=== PATIENT | male | born 1975 | race Caucasian/White ===

== ENCOUNTER 2021-05-16 11:15 | Inpatient (IN) ==
[2021-05-16] MEDS ORDERED: ALBUTEROL HFA 8 GM INHALER INH ONE (12:36)
[2021-05-16] MEDS ORDERED: dexAMETHasone**PF** 10 MG/ML VIAL PO ONE (12:36)
[2021-05-16] MEDS ORDERED: ACETAMINOPHEN 500 MG TAB PO STA (12:36)
[2021-05-16] MEDS ORDERED: dexAMETHasone**PF** 10 MG/ML VIAL IV ONE (12:41)
--- NOTE | 2021-05-16 12:46 | Emergency Department Note ---
Impression & Plan Hypoxia, SOB (shortness of breath), Pneumonia, Failure of outpatient treatment, COVID-19 ED Provider Note NAME: ZAFAR GEORGES AGE: 45 SEX: M : 1975 ARRIVES VIA: Ambulance INFORMANT: [Patient] ED PROVIDER(S): [Dominguez Gill MD] CHIEF COMPLAINT: Short of breath HISTORY OF PRESENT ILLNESS: The patient is a 45-year-old male who presents to the ED with dyspnea. The pa hima states he has COVID-19 and has had symptoms for about 10 days. He is not vaccinated against COVID-19. Patient was here 2 days ago and then again yesterday. He is now on O2 at home. He does have Covid pneumonia by chest film. He is not using an inhaler, he is not currently on any steroids. The patient presents today because he felt more short of breath. His oxygen level had been at 2 L, the EMS crew increased it to 3 and now he feels better. The patient is coughing less but is still feeling short of breath especially with exertion. He still has some low-grade fevers at times. He has lost his taste and smell. He is not vomiting although, he does have some loose, brown stool at times. REVIEW OF SYSTEMS: See HPI for pertinent positives and negatives. A total of ten systems were reviewed and were otherwise negative. PMHx/PSHx: See Below SOCIAL HISTORY: See Below. PHYSICAL EXAM: GENERAL: Patient is in no acute distress. HEENT: No acute trauma, normocephalic atraumatic, mucous membranes moist, no nasal congestion, no scleral icterus. NECK: No stridor, no adenopathy, no meningismus, trachea is midline. LUNGS: Crackles at both lung bases, no wheezing, no obvious respiratory distress, there is an increased respiratory rate. Dry cough noted. HEART: Mildly tachycardic, regular rhythm, no murmurs. ABDOMEN: Soft, nontender, bowel sounds positive, no hernias, no peritonitis. EXTREMITIES: No cyanosis or edema, full range of motion of all the joints without pain or difficulty, no signs for acute trauma. NEUROLOGIC: Oriented x 3, no acute motor or sensory deficits, no focal weakness. SKIN: No rash, no jaundice, no diaphoresis. DIFFERENTIAL DIAGNOSIS: Reactive airway disease, pneumonia, pneumothorax, COPD, COVID-19, CHF, infection, cardiac ischemia, pulmonary embolism, bronchitis, musculoskeletal, gastrointestinal, as well as other pathologies. EMERGENCY DEPARTMENT COURSE/PROCEDURES: ECG: Indication was shortness of breath. The ECG shows a sinus tachycardia with a rate of 102. There is no ST elevation, no PVCs. The QTc is 445. Continuous Cardiac Monitoring: An order was placed for continuous cardiac monitoring. The monitor shows a rate of 99 with normal sinus rhythm. Critical Care Note: I have personally spent 53 minutes of critical care time in the direct management of this patient. This includes bedside care, interpretation of diagnostic studies, and testing, discussion with consultants, patient, and family members, and other required patient management activities. This 53 minutes is in excess of all separately billable procedures. MEDICAL DECISION MAKING: There is no leukocytosis or concerning anemia. There is a normal platelet count. Potassium is slightly low and sodium slightly low. No kidney failure. ECG showed a sinus tachycardia, no acute ischemia. Cardiac enzyme testing x1 was not consistent with acute cardiac injury. Chest film showed bilateral pulmonary congestion consistent with pneumonia. The film appeared slightly worse than previous films. Chest CT did not show PE, bilateral pulmonary infiltrates were seen. The patient presents with increasing shortness of breath despite home O2. His oxygen requirement has increased from 2 to 3 L. His Covid pneumonia appears worse on imaging. The patient is in need of a hospital stay. He was given oral Tylenol, albuterol via MDI, IV Decadron. He does seem more comfortable. He was maintained on nasal cannula O2. The patient is being hospitalized for his Covid pneumonia and oxygen requirement. I did speak with the patient and case management director. The on-call hospitalist was consulted. 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 Feels Safe at Home: Yes caffeine: Yes (tea) Dental Care, Regularly: No Physical Activity Frequency: Daily Seatbelt Use: always Sunscreen Use: Yes Allergies Allergies Allergy/AdvReac Type Severity Reaction Status Date / Time No Known Allergies Allergy Mild Unverified 05/14/21 15:47 Home Meds Home Medications Medication Instructions Recorded Confirmed acetaminophen 500 mg tablet 500 mg PO QID PRN 09/08/20 05/16/21 (Tylenol Extra Strength) amlodipine 10 mg tablet 10 mg PO QAM tab 09/28/20 05/16/21 Previous Rx's Medication Instructions Recorded hydrochlorothiazide 25 mg tablet 25 mg PO QAM #90 tab 02/25/21 Results & Data (ED) Vital Signs Vital Signs - 24 hr 05/16/21 11:25 05/16/21 12:27 05/16/21 13:20 Temperature 37.7 C H Temperature Source Oral Pulse Rate 103 H 98 H Pulse Rate [Right Finger] 100 H Pulse Rate from SpO2 Sensor 98 H Respiratory Rate 18 26 H Respiratory Depth Normal Blood Pressure 133/86 Blood Pressure [Right Arm] 127/87 Blood Pressure Mean 101 Blood Pressure Mean [Right Arm] 100 Pulse Oximetry 94 97 96 Oxygen Delivery Method Nasal Cannula Nasal Cannula Oxygen Flow Rate 3 3 Sepsis New/Unexplained Change in Mental Status No Sepsis Action Taken by Nursing No Action Required 05/16/21 13:30 05/16/21 14:00 05/16/21 14:30 Temperature Temperature Source Pulse Rate 100 H 103 H 101 H Pulse Rate [Right Finger] Pulse Rate from SpO2 Sensor 99 H 102 H 101 H Respiratory Rate 26 H 30 H 27 H Respiratory Depth Blood Pressure Blood Pressure [Right Arm] Blood Pressure Mean Blood Pressure Mean [Right Arm] Pulse Oximetry 95 95 96 Oxygen Delivery Method Oxygen Flow Rate Sepsis New/Unexplained Change in Mental Status Sepsis Action Taken by Nursing 05/16/21 15:00 05/16/21 15:30 05/16/21 16:00 Temperature Temperature Source Pulse Rate 110 H 105 H Pulse Rate [Right Finger] Pulse Rate from SpO2 Sensor 109 H 102 H 93 H Respiratory Rate 31 H 17 Respiratory Depth Blood Pressure 138/91 Blood Pressure [Right Arm] Blood Pressure Mean 106 Blood Pressure Mean [Right Arm] Pulse Oximetry 93 96 97 Oxygen Delivery Method Oxygen Flow Rate 2 2 Sepsis New/Unexplained Change in Mental Status Sepsis Action Taken by Nursing 05/16/21 16:30 05/16/21 17:00 Temperature Temperature Source Pulse Rate 101 H 97 H Pulse Rate [Right Finger] Pulse Rate from SpO2 Sensor 101 H 96 H Respiratory Rate 27 H 21 Respiratory Depth Blood Pressure Blood Pressure [Right Arm] Blood Pressure Mean Blood Pressure Mean [Right Arm] Pulse Oximetry 96 98 Oxygen Delivery Method Oxygen Flow Rate 3 3 Sepsis New/Unexplained Change in Mental Status Sepsis Action Taken by [facility] Medications Current Medication List: was personally reviewed by me Laboratory Data Attestation: I reviewed the patient's lab results. Result diagrams: 05/16/21 12:55 05/16/21 12:55 Lab Results 05/16/21 05/16/21 Range/Units 12:55 12:55 WBC 5.40 (4.8-10.8) K/uL RBC 4.93 (4.7-6.1) M/uL Hgb 14.7 (14.0-18.0) g/dL Hct 42.5 (42-52) % MCV 86.2 (80-100) fL MCH 29.8 (25-34) pg MCHC 34.6 (32-36) g/dL RDW Std Deviation 41.9 (36.4-46.3) fL RDW Coeff of Dank 13.2 (11.5-14.5) % Plt Count 248 (130-400) K/uL MPV 9.4 (7.4-10.4) fL Sodium 135 L (136-145) mmol/L Potassium 3.4 L (3.5-5.1) mmol/L Chloride 98 (98-107) mmol/L Carbon Dioxide 29 (21-32) mmol/L Anion Gap 8.0 (3-11) BUN 10 D (7-18) mg/dl Creatinine 0.94 (0.6-1.4) mg/dl Est Cr Clr Drug Dosing Not Reportable Est GFR ( Amer) 113.8 ml/min Est GFR (Non-Af Amer) 98.2 ml/min BUN/Creatinine Ratio 11.1 (10-20) Glucose 99 (70-99) mg/dl Calcium 8.4 L (8.5-10.1) mg/dl Troponin I < 0.015 (0-0.045) ng/ml Administered Medications Discontinued Medications Acetaminophen (Acetaminophen 500 Mg Tab) 1,000 mg PO NOW STA Stop: 05/16/21 12:37 Last Admin: 05/16/21 12:59 Dose: 1,000 mg Documented by: [id number] Albuterol (Albuterol Hfa 8 Gm Inhaler) 4 puffs INH NOW ONE Stop: 05/16/21 12:37 Last Admin: 05/16/21 12:56 Dose: 4 puffs Documented by: [id number] Dexamethasone Sodium Phosphate (DexamethasonePf 10 Mg/Ml Vial) 10 mg PO NOW ONE Stop: 05/16/21 12:37 Last Admin: 05/16/21 15:21 Dose: Not Given Documented by: [id number] Dexamethasone Sodium Phosphate (DexamethasonePf 10 Mg/Ml Vial) 6 mg IV NOW ONE Stop: 05/16/21 12:42 Last Admin: 05/16/21 13:01 Dose: 6 mg Documented by: [id number] Ioversol (Optiray 320 125ml) 119 ml IV ONCE ONE Stop: 05/16/21 14:10 Last Admin: 05/16/21 14:09 Dose: 119 ml Documented by: [id number] Imaging Data Radiologist's Impression: Chest X-Ray 05/16/21 12:36 XR chest 1V portable HISTORY: Shortness of breath. COMPARISON: Chest 05/15/2021. FINDINGS: No pneumothorax or no pleural effusions. The heart is normal in size. There are low lung volumes with mild elevation of the left hemidiaphragm, unchanged. Patchy bilateral airspace opacities have slightly progressed. IMPRESSION: Slight progression of the patchy bilateral airspace opacities consistent with a viral pneumonia. ACT 112: Negative or not required by law. Electronically signed by: Roger Denson M.D. 05/16/2021 12:52 PM Chest CTA 05/16/21 12:40 CT angio chest PE protocol CT DOSE: 585.69 mGy.cm HISTORY: 45 years-old Male with PE. Acute shortness of breath TECHNIQUE: Multiple CTA images of the chest were obtained after the intravenous administration of 119 ml Optiray. Coronal and sagittal MIPS were obtained from the axial data set and were submitted for review. All measurements were obtained according to NASCET criteria. A dose lowering technique was utilized adhering to the principles of ALARA. COMPARISON: Chest radiograph of same day and also 05/15/2021 FINDINGS: CTA: The heart is upper limits of normal in size. There is no pericardial effusion. No thoracic aortic aneurysm or dissection. Patency of the imaged great vessels. Unremarkable pulmonary artery. No filling defects to suggest thromboembolic disease. Study is degraded by respiratory motion artifact. CT CHEST: Unremarkable thyroid. Mildly enlarged mediastinal and hilar lymph nodes measure up to 1.3 cm. Trace left pleural effusion. Dependent bibasilar consolidation with air bronchograms. Patchy bilateral subpleural predominant groundglass and consolidative opacities are noted within all lobes bilaterally. Central airways are patent. No acute process of the imaged upper abdomen. Hepatic steatosis. Unremarkable soft tissues. No acute fracture. IMPRESSION: 1. No pulmonary emboli. 2. Multilobar subpleural predominant groundglass and alveolar opacities are compatible with pneumonia, likely viral etiology. Findings have progressively worsened from 05/15/2021. 3. Mediastinal and hilar adenopathy, likely reactive. 4. Trace left pleural effusion. 5. Hepatic steatosis. ACT 112: Negative or not required by law. The above report was generated using voice recognition software. It may contain grammatical, syntax or spelling errors. Electronically signed by: Ellis Sanchez M.D. 05/16/2021 2:40 PM Discharge Plan Visit Data Chief Complaint: Illness Stated Complaint: SOB, COVID + ED Provider: Dominguez Gill Discharge Problem: Hypoxia, SOB (shortness of breath), Pneumonia, Failure of outpatient treatment, COVID-19 Patient Disposition: Admitted As Inpatient Condition: Fair Forms Stand Alone Forms: My [employer] Prescriptions Prescriptions: No Action hydrochlorothiazide 25 mg tablet 25 mg PO QAM Qty: 90 RF: 3 amlodipine 10 mg tablet 10 mg PO QAM RF: 0 acetaminophen [Tylenol Extra Strength] 500 mg Tablet 500 mg PO QID PRN (Reason: Pain) RF: 0 Referrals Referrals: Shanelle Avila CRNP [Primary Care Provider] -
--- NOTE | 2021-05-16 12:54 | XRay Report ---
XR chest 1V portable HISTORY: Shortness of breath. COMPARISON: Chest 05/15/2021. FINDINGS: No pneumothorax or no pleural effusions. The heart is normal in size. There are low lung vo lumes with mild elevation of the left hemidiaphragm, unchanged. Patchy bilateral airspace opacities h ave slightly progressed. IMPRESSION: Slight progression of the patchy bilateral airspace opacities consistent with a viral pneumonia. ACT 112: Negative or not required by law. Electronically signed by: Roger Denson M.D. 05/16/2021 12:52 PM
[2021-05-16 13:07] LABS: Hematocrit (blood only) 42.5 % (42-52); Hemoglobin 14.7 g/dL (14.0-18.0); Mean Corpuscular Hemoglobin 29.8 pg (25-34); Mean Corpuscular Hgb Conc 34.6 g/dL (32-36); Mean Corpuscular Volume 86.2 fL (80-100); Mean Platelet Volume 9.4 fL (7.4-10.4); Platelet Count 248 K/uL (130-400); RDW Coefficient of Variation 13.2 % (11.5-14.5); RDW Standard Deviation 41.9 fL (36.4-46.3); Red Blood Count 4.93 M/uL (4.7-6.1)
[2021-05-16 13:39] LABS: BUN Creatinine Ratio 11.1 (10-20); Blood Urea Nitrogen 10 mg/dl (7-18); Calcium 8.4 mg/dl (8.5-10.1); Carbon Dioxide 29 mmol/L (21-32); Chloride 98 mmol/L (98-107); Est GFR (African American) 113.8 ml/min; Est GFR (Non-African American) 98.2 ml/min; Glucose 99 mg/dl (70-99); Potassium 3.4 mmol/L (3.5-5.1); Sodium 135 mmol/L (136-145); Troponin I < 0.015 ng/ml (0-0.045)
[2021-05-16] MEDS ORDERED: OPTIRAY 320 125ml IV ONE (14:09)
--- NOTE | 2021-05-16 14:42 | CT Scan Report ---
CT angio chest PE protocol CT DOSE: 585.69 mGy.cm HISTORY: 45 years-old Male with PE. Acute shortness of breath TECHNIQUE: Multiple CTA images of the chest were obtained after the intravenous administration of 119 ml Optiray. Coronal and sagittal MIPS were obtained from the axial data set and were submitted for review. All measurements were obtained according to NASCET criteria. A dose lowering technique was u tilized adhering to the principles of ALARA. COMPARISON: Chest radiograph of same day and also 05/15/2021 FINDINGS: CTA: The heart is upper limits of normal in size. There is no pericardial effusion. No thoracic aortic ane urysm or dissection. Patency of the imaged great vessels. Unremarkable pulmonary artery. No filling d efects to suggest thromboembolic disease. Study is degraded by respiratory motion artifact. CT CHEST: Unremarkable thyroid. Mildly enlarged mediastinal and hilar lymph nodes measure up to 1.3 cm. Trace l eft pleural effusion. Dependent bibasilar consolidation with air bronchograms. Patchy bilateral subpl eural predominant groundglass and consolidative opacities are noted within all lobes bilaterally. Elan tral airways are patent. No acute process of the imaged upper abdomen. Hepatic steatosis. Unremarkable soft tissues. No acute fracture. IMPRESSION: 1. No pulmonary emboli. 2. Multilobar subpleural predominant groundglass and alveolar opacities are compatible with pneumonia , likely viral etiology. Findings have progressively worsened from 05/15/2021. 3. Mediastinal and hilar adenopathy, likely reactive. 4. Trace left pleural effusion. 5. Hepatic steatosis. ACT 112: Negative or not required by law. The above report was generated using voice recognition software. It may contain grammatical, syntax o r spelling errors. Electronically signed by: Ellis Sanchez M.D. 05/16/2021 2:40 PM
--- NOTE | 2021-05-16 16:28 | History & Physical Report ---
Date of Service May 16, 2021 Assessment & Plan (1) COVID-19: Plan: Unvaccinated Dexamethasone 6mg IV Outside window of effectiveness for remdesivir Incentive spirometer, flutter valve, guaifenesin (2) Hypoxia: Plan: Aim O2 sats > 90% (3) HTN (hypertension): Plan: Continue his usual amlodipine 10mg PO daily and HCTZ 25mg PO daily Plan: VTE Prophylaxis - Lovenox 40mg SQ daily Diet - regular Disposition - admit to med/surg, COVID isolation precautions Admission and Anticipated Discharge Date Admission Date: May 16, 2021 History of Present Illness Chief Complaint: COVID-19 pneumonia Primary Care Provider: SIXTO Mijares Devin Mckeon is a 45 year old male who presents to the ER with shortness of breath and known COVID-19 pneumonia. Unvaccinated. 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 He is currently at day 10 of illness with main symptoms of shortness of breath, reduced appetite, diarrhea. Prior fever not resolved. This is his third ER visit in the last 3 days. Yesterday he was hypoxia but wished to go home from the ER on home O2 rather than be admitted at that time. He returns today because oxygen levels were low (in 80s) despite 2 LPM O2 and increased 3LPM O2 this morning and felt better with chest pain improved. He reports new onset stabbing pains in his chest this morning which have now resolved with increased oxygen levels. He called the emergency room and recommended coming back to the ER for re- evaluation. In the ER he is requiring 3LPM O2 to maintain O2 sats > 94%. Given escalating O2 requirement he was referred to medicine for admission and ongoing management of COVID-19 pneumonia and hypoxia. Allergies Allergy/AdvReac Type Severity Reaction Status Date / Time No Known Allergies Allergy Mild Unverified 05/14/21 15:47 Home Medications Medication Instructions Recorded Confirmed Type acetaminophen 500 mg tablet 500 mg PO QID PRN 09/08/20 05/16/21 History (Tylenol Extra Strength) amlodipine 10 mg tablet 10 mg PO QAM tab 09/28/20 05/16/21 History hydrochlorothiazide 25 mg tablet 25 mg PO QAM #90 tab 02/25/21 05/16/21 Rx Past Med/Surg History Medical History GERD (gastroesophageal reflux disease) HTN (hypertension) Surgical History No pertinent past surgical history Family History Father Diabetes Hypertension Mother Hypertension Denies family history of Ovarian cancer Prostate cancer Myocardial infarction Breast cancer Colorectal cancer Social History Smoking Status: Never smoker Second Hand Exposure: No; Hx Alcohol Use: No Hx Substance Use: No Preferred Language: Azeri Communication Ability: Effective Electronic News Gathering Editor Required: No Beliefs That Will Affect Care: None marital status: Single Current Living Situation: Family current occupational status: employed 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 Feels Safe at Home: Yes Safety Concerns: Feels Safe At This Time caffeine: Yes (tea) Dental Care, Regularly: No Physical Activity Frequency: Daily Seatbelt Use: always Sunscreen Use: Yes Assistive Devices: Oxygen - Continuous Review of Systems Review of Systems: All systems reviewed & are unremarkable except as noted in HPI & below Physical Exam Constitutional: WD/WN, vitals as above Eyes: + anicteric sclerae; normal pupil size Respiratory: normal respiratory effort; no respiratory distress Auscultation: + crackles (fine at bases b/l) Cardiovascular: Rate/Rhythm: regular rhythm and + tachycardic Heart Sounds: no murmur Extremities: normal capillary refill; no calf tenderness and no pedal edema Gastrointestinal (Abdomen): normal bowel sounds, soft, nontender, no hepatosplenomegaly Musculoskeletal: no cyanosis or clubbing, extremities motor strength 5/5 Skin: no rashes, warm and dry Neurologic: moves all extremities and awake; not confused Psychiatric: A+Ox3, euthymic affect Results & Data Results & Data ([facility]) Vital Signs (Past 12 Hours) Vital Signs Temp Pulse Pulse Resp BP BP Pulse Ox 05/16/21 16:00 97 05/16/21 15:30 105 H 17 96 05/16/21 15:00 110 H 31 H 138/91 93 05/16/21 14:30 101 H 27 H 96 05/16/21 14:00 103 H 30 H 95 05/16/21 13:30 100 H 26 H 95 05/16/21 13:20 98 H 26 H 96 05/16/21 12:27 100 H 127/87 97 05/16/21 11:25 37.7 C H 103 H 18 133/86 94 Laboratory Results Abnormal lab results 05/16/21 05/16/21 Range/Units 12:55 12:55 Sodium 135 L (136-145) mmol/L Potassium 3.4 L (3.5-5.1) mmol/L Calcium 8.4 L (8.5-10.1) mg/dl C-Reactive Protein 7.88 H (0-0.29) mg/dl Diagnostic Findings XR chest 1V portable HISTORY: Shortness of breath. COMPARISON: Chest 05/15/2021. FINDINGS: No pneumothorax or no pleural effusions. The heart is normal in size. There are low lung volumes with mild elevation of the left hemidiaphragm, unchanged. Patchy bilateral airspace opacities have slightly progressed. IMPRESSION: Slight progression of the patchy bilateral airspace opacities consistent with a viral pneumonia. CT angio chest PE protocol CT DOSE: 585.69 mGy.cm HISTORY: 45 years-old Male with PE. Acute shortness of breath TECHNIQUE: Multiple CTA images of the chest were obtained after the intravenous administration of 119 ml Optiray. Coronal and sagittal MIPS were obtained from the axial data set and were submitted for review. All measurements were obtained according to NASCET criteria. A dose lowering technique was utilized adhering to the principles of ALARA. COMPARISON: Chest radiograph of same day and also 05/15/2021 FINDINGS: CTA: The heart is upper limits of normal in size. There is no pericardial effusion. No thoracic aortic aneurysm or dissection. Patency of the imaged great vessels. Unremarkable pulmonary artery. No filling defects to suggest thromboembolic disease. Study is degraded by respiratory motion artifact. CT CHEST: Unremarkable thyroid. Mildly enlarged mediastinal and hilar lymph nodes measure up to 1.3 cm. Trace left pleural effusion. Dependent bibasilar consolidation with air bronchograms. Patchy bilateral subpleural predominant groundglass and consolidative opacities are noted within all lobes bilaterally. Central airways are patent. No acute process of the imaged upper abdomen. Hepatic steatosis. Unremarkable soft tissues. No acute fracture. IMPRESSION: 1. No pulmonary emboli. 2. Multilobar subpleural predominant groundglass and alveolar opacities are compatible with pneumonia, likely viral etiology. Findings have progressively worsened from 05/15/2021. 3. Mediastinal and hilar adenopathy, likely reactive. 4. Trace left pleural effusion. 5. Hepatic steatosis. Medications Administered ER Medications Given: Acetaminophen 1000mg PO Albuterol 4 puffs INH Dexamethasone 6mg IV ECG Indication: tachycardia Rate (beats per minute): 102 Findings: + RBBB (incomplete); no acute ischemic change Comparison ECG Date: from (May 15, 2021) Change: no significant change Code Status & VTE Plan Code Status Full VTE Prophylaxis Plan VTE Prophylaxis will be ordered: Yes PG Care Time/CCT Total # of Minutes Spent Total Time Spent with Patient: Total time spent is greater than 50% in coordination of care (as documented) at patient's floor/unit and/or counseling patient: Coding Level of Care Code 19495 Initial Inpt Care Lvl 2 Diagnoses COVID-19 U07.1 Hypoxia R09.02 HTN (hypertension) I10 Hypertension type: essential hypertension (1) HTN (hypertension) Hypertension type: essential hypertension Qualified Code(s): I10 - Essential (primary) hypertension
[2021-05-16] MEDS ORDERED: POTASSIUM CHLORIDE CRTAB 20 MEQ TABCR PO STA (16:31)
[2021-05-16] MEDS ORDERED: ACETAMINOPHEN 325 MG TAB PO PRN (20:02)
[2021-05-16] MEDS ORDERED: POLYETHYLENE (MIRALAX) 17 GM PACK PO PRN (20:02)
[2021-05-16] MEDS ORDERED: ONDANSETRON INJ 2 MG/ML 2 ML VIAL IV PRN (20:02)
[2021-05-16] MEDS ORDERED: ALUMINUM/MAGNESIUM SUSP 30 ML UDC PO PRN (20:02)
[2021-05-16] MEDS: guaiFENesin 600 MG TABCR PO SCH (21:26)
[2021-05-16] MEDS: ENOXAPARIN INJ 40 MG/0.4 ML SYR SQ SCH (21:27)
[2021-05-17] MEDS: guaiFENesin 600 MG TABCR PO SCH ×2 (08:18→20:39)
[2021-05-17] MEDS: dexAMETHasone 6 MG in SYRINGE 0 ML IV SCH (08:18)
[2021-05-17] MEDS: amLODIPine BESYLATE 5 MG TAB PO SCH (08:40)
[2021-05-17] MEDS ORDERED: hydroCHLOROthiazide 25 MG TAB PO SCH (09:00)
[2021-05-17] MEDS ORDERED: FUROSEMIDE INJ 20 MG/2 ML VIAL IV ONE (09:21)
[2021-05-17 09:26] LABS: BUN Creatinine Ratio 15.3 (10-20); Calcium 8.7 mg/dl (8.5-10.1); Creatinine Clr Calc Pharmacy 105.5 ml/min; Est GFR (African American) 104.4 ml/min; Potassium 3.7 mmol/L (3.5-5.1)
[2021-05-17] MEDS: FAMOTIDINE 20 MG TAB PO SCH (09:57)
[2021-05-17] MEDS: ASCORBIC ACID 500 MG TAB PO SCH (09:57)
[2021-05-17] MEDS: ZINC SULFATE 220 MG CAPSULE PO SCH (09:57)
--- NOTE | 2021-05-17 15:32 | Hospitalist Progress Note ---
Date of Service May 17, 2021 Assessment & Plan (1) COVID-19: Plan: 45-year-old unvaccinated male presented to the ED with approximately 10 to 11 days of symptoms Seen in the ED on the day prior to admission with a normal pulse ox of 95% Did become mildly hypoxic requiring supplemental oxygen. Currently requiring 3 L to keep his pulse ox at 93%. Did desaturate while on 3 L to 89% when toileting but recovered Is on Decadron 6 mg IV daily Out of the window for remdesivir CTA shows no evidence of PE but multilobar groundglass opacities consistent with pneumonia CRP: 7.88 Continue Proventil inhaler as needed Continue mucolytic agents. Offered antitussives but patient declined (not having significant cough) Add vitamin C and zinc for immune support Add Pepcid for GI prophylaxis and histamine blockade (which in hopes may help prevent further progression to ARDSalthough no literature to suggest this but certainly will not hurt) 1 dose of IV Lasix today and additional oral Lasix tomorrow. No fulminant CHF but patient's seem to be better if you keep them slightly hypovolemic. We will hold HCTZ while on Lasix (2) Hypoxia: Plan: Aim O2 sats > 90% (3) HTN (hypertension): Plan: Continue his usual amlodipine 10mg PO daily Hold HCTZ while on Lasix Plan: VTE Prophylaxis - Lovenox 40mg SQ daily Diet - regular Disposition - admit to med/surg, COVID isolation precautions Admission and Anticipated Discharge Date Admission Date: May 16, 2021 Subjective Patient seen on daily rounds today. Hospitalized yesterday with Covid pneumonia and associated hypoxemia. Currently requiring 3 L of supplemental oxygen to keep his pulse ox at 93%. Relatively stable but noted to drop slightly (89% on 3L) after toileting. Did recover. Overall he reports that he feels significantly better compared to yesterday sin ce his fever has broken. T-max is 102.92 yesterday evening. Otherwise is hemodynamically stable Review of Systems Review of Systems: All systems reviewed and are unremarkable except as noted in HPI and below Denies fevers, chills, headache, nasal congestion, sore throat, cough, chest pain, palpitations, orthopnea, PND, abdominal pain, nausea, vomiting, diarrhea, constipation, dysuria, hematuria, frequency, back pain, joint pain or swelling, easy bruising or bleeding, skin lesions or rashes. Physical Exam Physical Exam: General: Resting comfortably in his hospital bed. NAD. HEENT: Head is AT/NC buccal mucosa is moist and pink Neck: No JVD. Negative hepatojugular reflex Cardiac: RRR without M/G/R Lungs: Breathing comfortably on supplemental oxygen. No accessory muscle use or labored breathing. Diminished breath sounds in the bases with a positive egophony in the left base. No wheezes or rales Abdomen: Normoactive X4. Soft and nontender in all quadrants. Extremities: No peripheral clubbing cyanosis or edema Neuro: A&O X4 cranial nerves II through XII are grossly intact no focal neuro deficits Skin: No obvious skin lesions or rashes Psych: Appropriate affect pleasant and cooperative Results & Data Results & Data ([facility]) Vital Signs (Past 12 Hours) Vital Signs Temp Pulse Resp BP Pulse Ox 05/17/21 15:04 37.1 C 100 H 16 142/89 H 94 05/17/21 10:43 89 L 05/17/21 08:20 37.1 C 99 H 18 141/90 H 93 Laboratory Results 05/16/21 12:55 05/17/21 08:19 PG Care Time/CCT Total # of Minutes Spent Total Time Spent with Patient: Total time spent is greater than 50% in coordination of care (as documented) at patient's floor/unit and/or counseling patient: Coding Level of Care Code 96125 Subseq Hosp Care Lvl 2 Diagnoses COVID-19 U07.1 Hypoxia R09.02 HTN (hypertension) I10 Hypertension type: essential hypertension (1) HTN (hypertension) Hypertension type: essential hypertension Qualified Code(s): I10 - Essential (primary) hypertension
[2021-05-17] MEDS: ENOXAPARIN INJ 40 MG/0.4 ML SYR SQ SCH (20:40)
[2021-05-18 06:21] LABS: Hematocrit (blood only) 42.6 % (42-52); Hemoglobin 14.6 g/dL (14.0-18.0); Immature Granulocytes # (auto) 0.01 K/uL (0.00-0.02); Immature Granulocytes % (auto) 0.1 %; Lymphocytes # (auto) 1.38 K/uL (1.2-3.4); Lymphocytes % (auto) 15.2 %; Mean Corpuscular Hemoglobin 29.6 pg (25-34); Mean Corpuscular Hgb Conc 34.3 g/dL (32-36); Mean Corpuscular Volume 86.2 fL (80-100); Mean Platelet Volume 9.8 fL (7.4-10.4); Monocytes # (auto) 0.59 K/uL (0.11-0.59); Monocytes % (auto) 6.5 %; Neutrophils # (auto) 7.12 K/uL (1.4-6.5); Neutrophils % (auto) 78.2 %; Platelet Count 347 K/uL (130-400); RDW Coefficient of Variation 13.2 % (11.5-14.5); RDW Standard Deviation 41.7 fL (36.4-46.3); Red Blood Count 4.94 M/uL (4.7-6.1)
--- NOTE | 2021-05-18 06:35 | Electrocardiogram Report ---
Test Reason : Blood Pressure : / mmHG Vent. Rate : 102 BPM Atrial Rate : 102 BPM P-R Int : 148 ms QRS Dur : 106 ms QT Int : 342 ms P-R-T Axes : 039 016 035 degrees QTc Int : 445 ms Sinus tachycardia Incomplete right bundle branch block Borderline ECG When compared with ECG of 15-MAY-2021 17:36, No significant change was found Confirmed by Kwasi Gupta ([id number]) on 05/18/2021 6:34:40 AM Referred By: REFERRED SELF Confirmed By:Kwasi Gupta
[2021-05-18 06:55] LABS: Albumin Globulin Ratio 0.7 (0.9-2); BUN Creatinine Ratio 21.8 (10-20); Bilirubin,Total 0.4 mg/dl (0.2-1); C Reactive Protein 4.34 mg/dl (0-0.29); Calcium 8.9 mg/dl (8.5-10.1); Creatinine Clr Calc Pharmacy 102.4 ml/min; Est GFR (African American) 100.7 ml/min; Est GFR (Non-African American) 86.9 ml/min; Globulin 4.3 gm/dl (2.5-4.0); Magnesium 2.4 mg/dl (1.8-2.4); Potassium 3.2 mmol/L (3.5-5.1); Total Protein 7.3 gm/dl (6.4-8.2)
[2021-05-18] MEDS: guaiFENesin 600 MG TABCR PO SCH (08:03)
[2021-05-18] MEDS: FAMOTIDINE 20 MG TAB PO SCH (08:03)
[2021-05-18] MEDS: amLODIPine BESYLATE 5 MG TAB PO SCH (08:03)
[2021-05-18] MEDS: ZINC SULFATE 220 MG CAPSULE PO SCH (08:03)
[2021-05-18] MEDS: ASCORBIC ACID 500 MG TAB PO SCH (08:04)
[2021-05-18] MEDS: dexAMETHasone 6 MG in SYRINGE 0 ML IV SCH (08:04)
[2021-05-18] MEDS ORDERED: FUROSEMIDE 20 MG TAB PO SCH (09:00)
[2021-05-18] MEDS ORDERED: POTASSIUM CHLORIDE CRTAB 20 MEQ TABCR PO STA (11:30)
--- NOTE | 2021-05-18 13:33 | Discharge Summary ---
Date of Service May 18, 2021 Admission HPI Per Admitting Provider Devin Mckeon is a 45 year old male who presents to the ER with shortness of breath and known COVID-19 pneumonia. Unvaccinated. 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 He is currently at day 10 of illness with main symptoms of shortness of breath, reduced appetite, diarrhea. Prior fever not resolved. This is his third ER visit in the last 3 days. Yesterday he was hypoxia but wished to go home from the ER on home O2 rather than be admitted at that time. He returns today because oxygen levels were low (in 80s) despite 2 LPM O2 and increased 3LPM O2 this morning and felt better with chest pain improved. He reports new onset stabbing pains in his chest this morning which have now resolved with increased oxygen levels. He called the emergency room and recommended coming back to the ER for re- evaluation. In the ER he is requiring 3LPM O2 to maintain O2 sats > 94%. Given escalating O2 requirement he was referred to medicine for admission and ongoing management of COVID-19 pneumonia and hypoxia. Principal Diagnosis 1. Covid Pneumonia with hypoxemia 2. Hypokalemia- 2/2 lasix and treated Discharge Exam General: Resting comfortably in his hospital bed. NAD. HEENT: Head is AT/NC buccal mucosa is moist and pink Neck: No JVD. Negative hepatojugular reflex Cardiac: RRR without M/G/R Lungs: Breathing comfortably on supplemental oxygen. No accessory muscle use or labored breathing. Diminished breath sounds in the bases with a positive egophony in the left base. No wheezes or rales Abdomen: Normoactive X4. Soft and nontender in all quadrants. Extremities: No peripheral clubbing cyanosis or edema Neuro: A&O X4 cranial nerves II through XII are grossly intact no focal neuro deficits Skin: No obvious skin lesions or rashes Psych: Appropriate affect pleasant and cooperative Discharge Data Allergies Allergy/AdvReac Type Severity Reaction Status Date / Time No Known Allergies Allergy Mild Unverified 05/14/21 15:47 Consultations 05/16/21 15:40 ED Decision to Admit Stat Ordered Studies 05/16/21: CXR: IMPRESSION: Slight progression of the patchy bilateral airspace opacities consistent with a viral pneumonia. 05/16/21 12:40 CT angio chest PE protocol Stat IMPRESSION: 1. No pulmonary emboli. 2. Multilobar subpleural predominant groundglass and alveolar opacities are compatible with pneumonia, likely viral etiology. Findings have progressively worsened from 05/15/2021. 3. Mediastinal and hilar adenopathy, likely reactive. 4. Trace left pleural effusion. 5. Hepatic steatosis. Hospital Course (1) COVID-19: 45-year-old unvaccinated male presented to the ED with approximately 10 to 11 days of symptoms Seen in the ED on the day prior to admission with a normal pulse ox of 95% back to the ED on 05/16 and noted to be mildly hypoxic requiring supplemental oxygen (3 L to keep his pulse ox at 93%). Did desaturate while on 3 L to 89% when toileting but recovered Treated with Decadron 6 mg IV daily Out of the window for remdesivir CTA showed no evidence of PE but multilobar groundglass opacities consistent with pneumonia CRP: 7.88--> downtrendind and currently 4.34 Continue supportive care: Proventil inhaler as needed (utilized while in house and will send home with this to use as needed), mucolytic agents, antitussive prn Pepcid use while in house for GI prophylaxis and histamine blockade (which in hopes may help prevent further progression to ARDSalthough no literature to suggest this but certainly will not hurt) 2 dose of IV Lasix given. No fulminant CHF but patient's seem to be better if you keep them slightly hypovolemic. HCTX held while given IV lasix Patient has remained medically and hemodynamically stable for over 24 hours. He still requiring supplemental oxygen (1 L at rest to keep his pulse ox in the low to mid 90s). Does require 2 to 3 L with minimal ambulation such as toileting No contraindication to proceed with discharge today as may require continued oxygen 4 weeks Continue Decadron X8 more doses (for total of 10 days) Continue supportive care as outlined above Follow-up with PCP within 7 to 10 days. PCP should help guide recommendations for continued oxygen supplementation need (goal pulse ox >/=88%okay to titrate accordingly) Would advise a follow-up chest x-ray in 4 weeks to ensure resolution of infiltrates (at discretion of PCP) Lengthy education given regarding realistic expectations. Will be easily fatigued. This may be ongoing for up to 3 months. Patient encouraged to get out of bed to the chair for all meals. Remain as active as tolerated. 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 Should follow-up with PCP for a return to work release. (2) Hypoxia: Aim O2 sats > 90% (3) Hypokalemia: Likely secondary to IV Lasix given Supplement with oral potassium prior to discharge today (4) HTN (hypertension): Continue his usual amlodipine 10mg PO daily and HCTZ 25mg PO daily VTE Prophylaxis - Lovenox 40mg SQ daily while in house Diet - regular Total Time Total Time Spent Total Time Spent (In Minutes): 45 minutes Discharge Plan Discharge Items Patient Disposition: Home - Self-Care Reason For Visit: COVID-19 PNEUMONIA Discharge Diagnosis: 1. Covid Pneumonia with Hypoxemia 2. Hypokalemia- replaced Condition on Discharge: Fair Activity: As commented below Activity Comment: activity as tolerated Non-emergency contact: Primary Care Provider Call non-emergency contact if: you have any medication questions Follow-up/Referrals: Shanelle Avila CRNP [Primary Care Provider] - 05/25/21 9:30 am Diet: Regular Addtl Attending Provider Instructions: - You were hospitalized with Covid Pneumonia - You are outside of the window to be provided IV remdesivir but are being treated with Decadron to help with the inflammatory response - use the rescue inhaler every 4-6 hours as needed for cough, shortness of breath, wheezing - tessalon perles are prescribed to be used as needed for cough - continue Mucinex for the next week (plan Mucinex-- avoid D or DM) - use supplemental Oxygen (1L at rest, 3L with ambulation/walking). Follow up with PCP to help determine continued need for oxygen (uncertain how long this will take) - Goal Pulse Ox= >/=88% - would avoid work for the next 1-2 weeks (until cleared by PCP) as you can not do your job while on oxygen as it is combustible - note that the fatigue may linger for week (you may not feel like yourself for u pto 3 months). You will have good days and bad (this is all to be expected). - would advise being as active as you can tolerate (don't just lay in bed). Sit at the table for meals, get showers everyday, slowly increase your activity as you can tolerate (exercise those lungs!) - return to the Ed for new or worsening symptoms Pending Studies at Discharge: No Stand-Alone Forms: My [facility] [address] Medications and DC Order Prescriptions: New guaifenesin [Mucinex] 600 mg Tablet Extended Release 12hr 1,200 mg PO Q12 Qty: 14 RF: 0 dexamethasone [Decadron] 6 mg tablet 6 mg PO DAILY Qty: 8 RF: 0 benzonatate 100 mg capsule 100 mg PO TID PRN (Reason: cough) Qty: 30 RF: 0 Continued hydrochlorothiazide 25 mg tablet 25 mg PO QAM Qty: 90 RF: 3 amlodipine 10 mg tablet 10 mg PO QAM RF: 0 acetaminophen [Tylenol Extra Strength] 500 mg Tablet 500 mg PO QID PRN (Reason: Pain) RF: 0 Discharge Orders: Discharge Order (Routine); Ordered 05/18/21 Ordered By: Rebecca Ayala/Other Patient Handouts: 2019-nCoV, COVID-19 Home Care Admission Data Admit Date/Time: 05/16/21 16:30 Attending Provider: Carlos Brumfield Admit Provider: Thai Arvizu Primary Care Provider: Shanelle Avila Other Providers: Carlos Brumfield Other Interventions: Discharge Summary Assessment (RN) Last Done: 05/18/21 14:48 Supervising Physician Co-Signing Physician Notes I supervised Rebecca Chopra PA-C on the care of this patient. I interviewed and examined the patient independently of her. The plan is as written in her note except for any following changes/exceptions: None Doing well today. O2 requirement has been stable, and his O2 sat is upwards of 95% on his 1L. Will arrange home O2 and discharge to recover further at home. Coding Level of Care Code D/C DAY MANAGEMENT >30 MINS Diagnoses COVID-19 U07.1 Hypoxia R09.02 HTN (hypertension) I10 Hypertension type: essential hypertension Hypokalemia E87.6
== END 2021-05-18 20:50 | disposition home or self-care (01) | DRG 177 ==
LOC: ED 11:15 → EDINP 18:30 → SUATTDRO 18:30 → 3E 21:42

== ENCOUNTER 2021-05-20 17:05 | Inpatient (IN) ==
[2021-05-20] MEDS ORDERED: SODIUM CHLORIDE 0.9% 500 ML IV ONE (18:19)
--- NOTE | 2021-05-20 18:58 | XRay Report ---
XR chest 1V portable CLINICAL HISTORY: Covid positive. Cough and chest pain.. Confusion COMPARISON STUDY: 05/16/2021 TECHNIQUE: 1 view of the chest FINDINGS: Single frontal view of the chest demonstrates the cardiomediastinal silhouette to be within normal li mits. Compared to the previous examination, there is again slight worsening of patchy interstitial an d alveolar opacities bilaterally. The findings are again characteristic of a viral type pneumonitis a nd Covid 19 pneumonia. There is no evidence for pleural effusion. There is no evidence for vascular c ongestion. There is no acute osseous pathology. IMPRESSION: Continued slight interval worsening of interstitial and alveolar opacities characteristic of a viral type pneumonitis and Covid 19 pneumonia. ACT 112: Negative or not required by law. Electronically signed by: Julius Velasquez M.D. 05/20/2021 6:56 PM
[2021-05-20 19:17] LABS: Basophils # (auto) 0.01 K/uL (0-0.2); Basophils % (auto) 0.1 %; Hematocrit (blood only) 43.7 % (42-52); Hemoglobin 15.3 g/dL (14.0-18.0); Immature Granulocytes # (auto) 0.04 K/uL (0.00-0.02); Immature Granulocytes % (auto) 0.6 %; Lymphocytes # (auto) 0.76 K/uL (1.2-3.4); Lymphocytes % (auto) 11.2 %; Mean Corpuscular Hemoglobin 29.8 pg (25-34); Mean Corpuscular Volume 85.2 fL (80-100); Mean Platelet Volume 9.2 fL (7.4-10.4); Monocytes # (auto) 0.22 K/uL (0.11-0.59); Monocytes % (auto) 3.2 %; Neutrophils # (auto) 5.77 K/uL (1.4-6.5); Neutrophils % (auto) 84.9 %; Platelet Count 536 K/uL (130-400); RDW Coefficient of Variation 12.8 % (11.5-14.5); RDW Standard Deviation 40.7 fL (36.4-46.3); Red Blood Count 5.13 M/uL (4.7-6.1)
[2021-05-20] MEDS ORDERED: LORazepam 1 MG/2 ML VIAL IV STA ×2 (19:28→23:24)
[2021-05-20 19:37] LABS: Alanine Aminotransferase 142 U/L (12-78); Albumin Globulin Ratio 0.7 (0.9-2); Albumin Level 3.4 gm/dl (3.4-5.0); Alkaline Phosphatase 61 U/L (45-117); Aspartate Aminotransferase 39 U/L (15-37); BUN Creatinine Ratio 16.5 (10-20); Bilirubin,Total 0.6 mg/dl (0.2-1); Blood Urea Nitrogen 13 mg/dl (7-18); Calcium 9.1 mg/dl (8.5-10.1); Carbon Dioxide 25 mmol/L (21-32); Chloride 96 mmol/L (98-107); Est GFR (African American) 126.6 ml/min; Est GFR (Non-African American) 109.2 ml/min; Globulin 4.8 gm/dl (2.5-4.0); Glucose 155 mg/dl (70-99); Potassium 3.7 mmol/L (3.5-5.1); Sodium 132 mmol/L (136-145); Total Protein 8.2 gm/dl (6.4-8.2)
--- NOTE | 2021-05-20 20:23 | CT Scan Report ---
CT head/brain wo con CLINICAL HISTORY: covid+, confusion COMPARISON STUDY: 02/03/2013 CT DOSE: 614.27 mGy.cm TECHNIQUE: Standard CT of the Brain was performed without IV contrast. A dose lowering technique was utilized adhering to the principles of ALARA. FINDINGS: Extraaxial space: There is no evidence for subdural hematoma. There are no extra-axial fluid collecti ons. Ventricles and cisterns: The ventricles are normal in size and configuration. There is no evidence f or midline shift or mass effect. Parenchyma: There is no subarachnoid or intraparenchymal hemorrhage. There is no evidence for an acu te infarct or cerebral edema. There is homogeneous attenuation of the brain parenchyma. There are no gross mass lesions. Osseous structures: There is no evidence for an acute fracture. The visualized paranasal sinuses are clear. The mastoid air cells are clear bilaterally. Soft tissues: There is no evidence for focal soft tissue swelling. IMPRESSION: No acute intracerebral pathology. ACT 112: Negative or not required by law. Electronically signed by: Julius Velasquez M.D. 05/20/2021 8:22 PM
[2021-05-20 20:47] LABS: Appearance Urine Clear (Clear); Bilirubin Urine Negative (Negative); Blood Urine Negative (Negative); Color Urine Yellow; Glucose Urine UA Negative (Negative); Ketones Urine Negative (Negative); Leukocyte Esterase Urine Negative (Negative); Nitrite Urine Negative (Negative); Protein Urine Negative (Negative); Specific Gravity Urine 1.003 (1.000-1.030); Urobilinogen Urine Negative (Negative)
[2021-05-20 21:19] LABS: Amphetamines+Metham, Urine Neg (Neg); Barbiturates, Urine Neg (Neg); Benzodiazepine, Urine Neg (Neg); Cocaine, Urine Neg (Neg); MDMA (Ecstacy), Urine Neg (Neg); Methadone, Urine Neg (Neg); Opiate, Urine Neg (Neg); Phencyclidine, Urine Neg (Neg)
[2021-05-20 22:46] LABS: Magnesium 2.6 mg/dl (1.8-2.4); Troponin I < 0.015 ng/ml (0-0.045)
--- NOTE | 2021-05-20 22:53 | History & Physical Report ---
Date of Service May 20, 2021 Assessment & Plan (1) Altered mental status: Plan: Altered mental status/confusion and disorientation- CT head and MRI of brain negative for acute findings Symptoms did begin after patient had been without Decadron for 2 days, as he did not get his prescriptions filled after discharge. We will order Lyme testing We will place patient back on dexamethasone 6 mg IV daily Follow his neurologic examination closely (2) COVID-19 virus infection: Plan: Recent admission from 05/16-05/18 for COVID-19 pneumonia with hypoxia. As noted above, patient did not get dexamethasone prescription filled until attempted to 2 days later, the day of readmission We will place back on dexamethasone 6 mg IV every morning (3) HTN (hypertension): Plan: Hold amlodipine and HCTZ. Vital signs showing increased heart rate to the 110s and 120s, and if persistent, will place on Lopressor History of Present Illness Chief Complaint: The patient presents to the emergency department due to altered mental status and confusion noted by patient and patient's sister. Primary Care Provider: SIXTO Mijares The patient is a 45-year-old male with a past medical history including GERD, hypertension and recent admission to [facility] from 05/16-05/18 for COVID-19 pneumonia with hypoxia. Upon arrival in the emergency room, patient was confused, and when asked why he was at the ED, he replied "meds". Patient was very confused, and had difficulty relaying his symptoms other than the fact he was confused and felt very weak. He was discharged from [facility] on 05/18, and sister reports that he went to the pharmacy to grain picker his prescriptions today 05/20, and when he returned was acting very unusual, confused and unable to answer questions and carry on conversation appropriately. Work-up in the emergency department included the following imaging: Chest x-ray showed slight progression of viral pneumonia. CT scan of head showed no acute findings. MRI brain showed no acute findings. Abnormal laboratories: Glucose 155, AST 39 which was decreased from 45, and ALT 142 which is increased from 73. Urine drug screen was negative. EKG showed sinus tachycardia 113 bpm, with no acute ST-T changes. While in the ED, the patient's sister called and asked that the patient's phone be taken from him, as he was texting and face booking a number of people and st ating very bizarre and unusual things. Allergies Allergy/AdvReac Type Severity Reaction Status Date / Time No Known Allergies Allergy Mild Unverified 05/20/21 19:17 Home Medications Medication Instructions Recorded Confirmed Type acetaminophen 500 mg tablet 500 mg PO QID PRN 09/08/20 05/20/21 History (Tylenol Extra Strength) amlodipine 10 mg tablet 10 mg PO QAM tab 09/28/20 05/20/21 History hydrochlorothiazide 25 mg tablet 25 mg PO QAM #90 tab 02/25/21 05/20/21 Rx benzonatate 100 mg capsule 100 mg PO TID PRN #30 cap 05/18/21 05/20/21 Rx dexamethasone 6 mg tablet 6 mg PO DAILY #8 tab 05/18/21 05/20/21 Rx (Decadron) guaifenesin 600 mg tablet, 1,200 mg PO Q12 #14 tab 05/18/21 05/20/21 Rx extended release 12 hr (Mucinex) Past Med/Surg History Medical History GERD (gastroesophageal reflux disease) HTN (hypertension) Surgical History No pertinent past surgical history Family History Father Diabetes Hypertension Mother Hypertension Denies family history of Ovarian cancer Prostate cancer Myocardial infarction Breast cancer Colorectal cancer Social History Smoking Status: Never smoker Second Hand Exposure: No; Hx Alcohol Use: No Hx Substance Use: No Preferred Language: Rwand[place] Communication Ability: Effective 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 Required: No Beliefs That Will Affect Care: None marital status: Single Current Living Situation: Family current occupational status: employed 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 Feels Safe at Home: Yes caffeine: Yes (tea) Dental Care, Regularly: No Physical Activity Frequency: Daily Seatbelt Use: always Sunscreen Use: Yes Assistive Devices: Oxygen - Continuous Review of Systems Review of Systems: The patient denies chest pain, palpitations, shortness of breath, dyspnea on exertion, cough, lower extremity swelling, sore throat, fevers, chills, sweats, nausea, vomiting, diarrhea , constipation, abdominal pain, pelvic pain, blood in urine or stool, dysuria, urinary frequency or urgency, loss of consciousness, rash, abnormal bruising or bleeding, imbalance, focal weakness, numbness or tingling in arms or legs, back or neck pain, or night sweats. The patient was able to answer the above questions, but took a considerable length of time to do so The review of systems is otherwise negative other than for that already noted above, and at least 10 systems have been reviewed. Physical Exam Physical Exam: The patient is awake, confused, developed and well nourished, normocephalic and atraumatic, lying in bed and in no acute distress. HEENT--PERRL, EOMI, mucous membranes and oropharynx normal Neck--supple. No JVD. No bruits. Thyroid normal, trachea midline, no adenopathy. Heart--normal S1 and S2. No murmurs, rubs or gallops. Lungs--clear bilaterally, no respiratory distress, no accessory muscle use. Abdomen--normal bowel sounds and soft. Nontender. Nondistended, no hernias or masses, no organomegaly. Extremities--no cyanosis or clubbing. No edema. Dermatologic--normal skin turgor, normal color, no abnormal lymph nodes, no rash. Neurologic--cranial nerves II through XII grossly intact. Rheumatologic--normal range of motion. Psychiatric--confused and disoriented Results & Data Results & [facility] ([facility] Vital Signs (Past 12 Hours) Vital Signs Temp Pulse Resp BP Pulse Ox 05/20/21 19:07 96 05/20/21 17:31 37.1 C 127 H 18 158/99 H 98 Laboratory Results Laboratory Results WBC 6.80 K/uL (4.8-10.8) 05/20/21 18:56 RBC 5.13 M/uL (4.7-6.1) 05/20/21 18:56 Hgb 15.3 g/dL (14.0-18.0) 05/20/21 18:56 Hct 43.7 % (42-52) 05/20/21 18:56 MCV 85.2 fL (80-100) 05/20/21 18:56 MCH 29.8 pg (25-34) 05/20/21 18:56 MCHC 35.0 g/dL (32-36) 05/20/21 18:56 RDW Std Deviation 40.7 fL (36.4-46.3) 05/20/21 18:56 RDW Coeff of Dank 12.8 % (11.5-14.5) 05/20/21 18:56 Plt Count 536 K/uL (130-400) H 05/20/21 18:56 MPV 9.2 fL (7.4-10.4) 05/20/21 18:56 Immature Gran % (Auto) 0.6 % 05/20/21 18:56 Neut % (Auto) 84.9 % 05/20/21 18:56 Lymph % (Auto) 11.2 % 05/20/21 18:56 [place] % (Auto) 3.2 % 05/20/21 18:56 Eos % (Auto) 0.0 % 05/20/21 18:56 Baso % (Auto) 0.1 % 05/20/21 18:56 Neut # (Auto) 5.77 K/uL (1.4-6.5) 05/20/21 18:56 Lymph # (Auto) 0.76 K/uL (1.2-3.4) L 05/20/21 18:56 [place] # (Auto) 0.22 K/uL (0.11-0.59) 05/20/21 18:56 Eos # (Auto) 0.00 K/uL (0-0.5) 05/20/21 18:56 Baso # (Auto) 0.01 K/uL (0-0.2) 05/20/21 18:56 Immature Gran # (Auto) 0.04 K/uL (0.00-0.02) H 05/20/21 18:56 Sodium 132 mmol/L (136-145) L 05/20/21 18:56 Potassium 3.7 mmol/L (3.5-5.1) 05/20/21 18:56 Chloride 96 mmol/L (98-107) L 05/20/21 18:56 Carbon Dioxide 25 mmol/L (21-32) 05/20/21 18:56 Anion Gap 11.0 (3-11) 05/20/21 18:56 BUN 13 mg/dl (7-18) 05/20/21 18:56 Creatinine 0.79 mg/dl (0.6-1.4) 05/20/21 18:56 Est Cr Clr Drug Dosing Not Reportable 05/20/21 18:56 Est GFR ( Amer) 126.6 ml/min 05/20/21 18:56 Est GFR (Non-Af Amer) 109.2 ml/min 05/20/21 18:56 BUN/Creatinine Ratio 16.5 (10-20) 05/20/21 18:56 Glucose 155 mg/dl (70-99) H 05/20/21 18:56 Calcium 9.1 mg/dl (8.5-10.1) 05/20/21 18:56 Magnesium 2.6 mg/dl (1.8-2.4) H 05/20/21 18:56 Total Bilirubin 0.6 mg/dl (0.2-1) 05/20/21 18:56 AST 39 U/L (15-37) H 05/20/21 18:56 ALT 142 U/L (12-78) H 05/20/21 18:56 Alkaline Phosphatase 61 U/L (45-117) 05/20/21 18:56 Troponin I < 0.015 ng/ml (0-0.045) 05/20/21 18:56 Total Protein 8.2 gm/dl (6.4-8.2) 05/20/21 18:56 Albumin 3.4 gm/dl (3.4-5.0) 05/20/21 18:56 Globulin 4.8 gm/dl (2.5-4.0) H 05/20/21 18:56 Albumin/Globulin Ratio 0.7 (0.9-2) L 05/20/21 18:56 Urine Color Yellow 05/20/21 20:30 Urine Appearance Clear (Clear) 05/20/21 20:30 Urine pH 7.0 (4.5-7.5) 05/20/21 20:30 Ur Specific [place] 1.003 (1.000-1.030) 05/20/21 20:30 Urine Protein Negative (Negative) 05/20/21 20:30 Urine Glucose (UA) Negative (Negative) 05/20/21 20:30 Urine Ketones Negative (Negative) 05/20/21 20:30 Urine Blood Negative (Negative) 05/20/21 20:30 Urine Nitrite Negative (Negative) 05/20/21 20:30 Urine Bilirubin Negative (Negative) 05/20/21 20:30 Urine Urobilinogen Negative (Negative) 05/20/21 20:30 Ur Leukocyte Esterase Negative (Negative) 05/20/21 20:30 Urine Opiates Screen Neg (Neg) 05/20/21 20:30 Ur Methadone, Qual Neg (Neg) 05/20/21 20:30 Urine Barbiturates Neg (Neg) 05/20/21 20:30 Ur Phencyclidine (PCP) Neg (Neg) 05/20/21 20:30 U Amphetamin/Meth Scrn Neg (Neg) 05/20/21 20:30 MDMA (Ecstasy) Screen Neg (Neg) 05/20/21 20:30 U Benzodiazepines Scrn Neg (Neg) 05/20/21 20:30 Ur Cocaine Metabolite Neg (Neg) 05/20/21 20:30 U Marijuana (THC) Screen Neg (Neg) 05/20/21 20:30 Ethyl Alcohol mg/dL < 3.0 mg/dl (0-3) 05/20/21 18:[address] 05/20/21 18:17 CT head/brain wo con CLINICAL HISTORY: covid+, confusion COMPARISON STUDY: 02/03/2013 CT DOSE: 614.27 mGy.cm TECHNIQUE: Standard CT of the Brain was performed without IV contrast. A dose lowering technique was utilized adhering to the principles of ALARA. FINDINGS: Extraaxial space: There is no evidence for subdural hematoma. There are no extra -axial fluid collections. Ventricles and cisterns: The ventricles are normal in size and configuration. There is no evidence for midline shift or mass effect. Parenchyma: There is no subarachnoid or intraparenchymal hemorrhage. There is no evidence for an acute infarct or cerebral edema. There is homogeneous attenuation of the brain parenchyma. There are no gross mass lesions. Osseous structures: There is no evidence for an acute fracture. The visualized paranasal sinuses are clear. The mastoid air cells are clear bilaterally. Soft tissues: There is no evidence for focal soft tissue swelling. IMPRESSION: No acute intracerebral pathology. ACT 112: Negative or not required by law. Electronically signed by: Julius Munoz M.D. 05/20/2021 8:22 PM Chest X-Ray 05/20/21 18:18 XR chest 1V portable CLINICAL HISTORY: Covid positive. Cough and chest pain.. Confusion COMPARISON STUDY: 05/16/2021 TECHNIQUE: 1 view of the chest FINDINGS: Single frontal view of the chest demonstrates the cardiomediastinal silhouette to be within normal limits. Compared to the previous examination, there is again slight worsening of patchy interstitial and alveolar opacities bilaterally. The findings are again characteristic of a viral type pneumonitis and Covid 19 pneumonia. There is no evidence for pleural effusion. There is no evidence for vascular congestion. There is no acute osseous pathology. IMPRESSION: Continued slight interval worsening of interstitial and alveolar opacities characteristic of a viral type pneumonitis and Covid 19 pneumonia. ACT 112: Negative or not required by law. Electronically signed by: Julius Munoz M.D. 05/20/2021 6:[address] [facility] Patient: ZAFAR GEORGES (Male) : 77 Status: ER Date:J 05/21/21 00:21 Room #: c11b History: SPOKE WITH PATIENT SISTER ALFRED TO ANSWER SCREENING QUESTION. PT JUST GOT OUT OF HOSPITAL. COVID + HAS PNEUMONIA. CONFUSION. NOT ACTING HIMSELF. AGG ITATED. NO PRIOR SURGERY. NO HX OF CANCER. PT MEDICATED WITH ATIVAN. RAN PROPS FOR MOTION. BEST SCANS POSSIBLE. ORBITS CLEAR DR. MUNOZ CT HEAD. Slices: [id number] Priors: ct head wo Tech: Lizzette Nevarez @ [phone] Exams: MRI HEAD Contrast: Accession Numbers: [id number] Referring Physician: REFERRED SELF Preliminary Findings Only See Final Report For Complete Findings MRI HEAD : No acute infarct. No intracranial hemorrhage, mass-effect or midline shift. No acute finding. Radiologist: Vandana Sainz MD Study ready at 00:25 and initial results transmitted at 01:10 *This report constitutes a preliminary interpretation only. Non-acute findings felt to be unrelated to the clinical presentation may not be discussed in this report. The study will be interpreted and a final report will be generated by the local Radiologist the following shift. To reach the [facility] radiology department call [phone]. If a discrepancy is found between the preliminary and final interpretations of this study, please notify us via our Client Portal at [email or web address], under QA Exams. You can also fax this report with a description of the discrepancy, or include the final report, to our daytime fax number [phone]. If faxing, please indicate the severity of discrepancy using one of the following categories: [ ] 1 - Agree/Informational [ ] 2 - Unlikely to Affect Management [ ] 3 - Possible Eventual Change of Management [ ] 4 - Probable Immediate Change of Management For all other patient related information, please fax us at [phone]. [id number] Code Status & VTE Plan Code Status Full code VTE Prophylaxis Plan VTE Prophylaxis will be ordered: Yes PG Care Time/CCT Total # of Minutes Spent Total Time Spent with Patient: Total time spent is greater than 50% in coordination of care (as documented) at patient's floor/unit and/or counseling patient: Coding Level of Care Code 53280 Initial Inpt Care Lvl 3 Diagnoses Altered mental status R41.82 Altered mental status type: unspecified COVID-19 virus infection U07.1 HTN (hypertension) I10 Hypertension type: essential hypertension (1) Altered mental status Altered mental status type: unspecified Qualified Code(s): R41.82 - Altered mental status, unspecified (2) HTN (hypertension) Hypertension type: essential hypertension Qualified Code(s): I10 - Essential (primary) hypertension
[2021-05-20] MEDS ORDERED: dexAMETHasone**PF** 10 MG/ML VIAL IV ONE (23:24)
--- NOTE | 2021-05-21 01:00 | Emergency Department Note ---
History of Present Illness General Chief complaint: Anxiety Stated complaint: ANXIETY - ALT MENTAL STATUS Time Seen by Provider: 05/20/21 17:52 Source: family Mode of arrival: EMS Limitations: altered mental status History of Present Illness This patient is a 45-year-old male who presents to the emergency department for evaluation of altered mental status. When asked why patient is here he states "meds." Patient does admit to feeling confused. Additional history was obtained from the patient's sister, Nesha. She states that the patient was recently admitted for COVID-19. He was discharged 2 days ago. 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 Sister reports that he is seemed to be confused and was not answering questions appropriately. The patient denies any drug or alcohol use, and sister confirms that he does not use any drugs or drink alcohol excessively. Home Medications Medication Instructions Recorded Confirmed Type acetaminophen 500 mg tablet 500 mg PO QID PRN 09/08/20 05/20/21 History (Tylenol Extra Strength) amlodipine 10 mg tablet 10 mg PO QAM tab 09/28/20 05/20/21 History hydrochlorothiazide 25 mg tablet 25 mg PO QAM #90 tab 02/25/21 05/20/21 Rx benzonatate 100 mg capsule 100 mg PO TID PRN #30 cap 05/18/21 05/20/21 Rx dexamethasone 6 mg tablet 6 mg PO DAILY #8 tab 05/18/21 05/20/21 Rx (Decadron) guaifenesin 600 mg tablet, 1,200 mg PO Q12 #14 tab 05/18/21 05/20/21 Rx extended release 12 hr (Mucinex) Allergies Allergy/AdvReac Type Severity Reaction Status Date / Time No Known Allergies Allergy Mild Unverified 05/20/21 19:17 Past Med/Surg History Medical History GERD (gastroesophageal reflux disease) HTN (hypertension) Surgical History No pertinent past surgical history Family History Father Diabetes Hypertension Mother Hypertension Denies family history of Ovarian cancer Prostate cancer Myocardial infarction Breast cancer Colorectal cancer Social History Smoking Status: Never smoker Second Hand Exposure: No; Hx Alcohol Use: No Hx Substance Use: No Preferred Language: Jordanian Communication Ability: Effective Dairy Products Maker Required: No Beliefs That Will Affect Care: None marital status: Single Current Living Situation: Family current occupational status: employed 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 Feels Safe at Home: Yes caffeine: Yes (tea) Dental Care, Regularly: No Physical Activity Frequency: Daily Seatbelt Use: always Sunscreen Use: Yes Assistive Devices: Oxygen - Continuous Review of Systems A total of 10 systems reviewed and were otherwise negative Physical Exam Vital Signs Vital Signs - 24 hr 05/20/21 17:31 05/20/21 19:07 05/20/21 23:16 Temperature 37.1 C Temperature Source Temporal Artery Scan Pulse Rate 127 H Pulse Rate [Finger] 124 H Respiratory Rate 18 Respiratory Effort / Characteristics Non-Labored Respiratory Depth Normal Blood Pressure 158/99 H Blood Pressure [Left Arm] 168/124 H Blood Pressure Mean 118 Blood Pressure Mean [Left Arm] 138 Blood Pressure Position Sitting Pulse Oximetry 98 96 98 Oxygen Delivery Method Nasal Cannula Nasal Cannula Nasal Cannula Oxygen Flow Rate 3 2 2 Sepsis Recent Fever Within 48 Hours Yes Sepsis New/Unexplained Change in Mental Status No Sepsis Action Taken by Nursing No Action Required 05/20/21 23:20 Temperature 36.9 C Temperature Source Oral Pulse Rate Pulse Rate [Finger] Respiratory Rate Respiratory Effort / Characteristics Respiratory Depth Blood Pressure Blood Pressure [Left Arm] Blood Pressure Mean Blood Pressure Mean [Left Arm] Blood Pressure Position Pulse Oximetry Oxygen Delivery Method Oxygen Flow Rate Sepsis Recent Fever Within 48 Hours Sepsis New/Unexplained Change in Mental Status Sepsis Action Taken by Nursing VITALS: Vitals are noted on the nurse's note and reviewed by myself. GENERAL: This is a 45-year-old male, slightly anxious appearing and agitated. SKIN: The skin was without rashes. HEAD: Normocephalic atraumatic. EARS: External auditory canals clear, tympanic membranes pearly sandoval without erythema or effusion bilaterally. EYES: Pupils equal round and reactive to light and accommodation. Extraocular movements intact. MOUTH: Mucous membranes moist. Tonsils are not enlarged. Pharynx without erythema or exudate. NECK: Supple without nuchal rigidity. No lymphadenopathy. HEART: Regular rate and rhythm without murmurs gallops or rubs. LUNGS: Patient on 2 L of oxygen via nasal cannula. Lung sounds diminished throughout. MUSCULOSKELETAL: Full range of motion of all extremities. Strength 5/5 throughout. NEURO: Patient was alert and oriented to person place and time, but seems to be confused and answers most questions in very short sentences. Course Administered Medications Discontinued Medications Dexamethasone Sodium Phosphate (DexamethasonePf 10 Mg/Ml Vial) 6 mg IV NOW ONE Stop: 05/20/21 23:25 Last Admin: 05/20/21 23:48 Dose: 6 mg Documented by: [id number] Sodium Chloride (Nss) 500 mls @ 999 mls/hr IV .Q31M ONE Stop: 05/20/21 18:49 Last Infusion: 05/20/21 21:52 Dose: 0 mls/hr Documented by: [id number] Admin: 05/20/21 19:11 Dose: 999 mls/hr Documented by: [id number] Lorazepam (Ativan) 1 mg in 2 mls @ 2 mls/min IV NOW STA Stop: 05/20/21 19:29 Last Admin: 05/20/21 19:38 Dose: 2 mls/min Documented by: [id number] Lorazepam (Ativan) 1 mg in 2 mls @ 2 mls/min IV NOW STA Stop: 05/20/21 23:25 Last Admin: 05/20/21 23:48 Dose: 2 mls/min Documented by: [id number] Medical Decision Making Differential Diagnosis Infection, hypoglycemia, electrolyte abnormalities, overdose, toxicologic, cardiac sources, intracerebral event, neurologic, trauma, as well as other pathologies. Home Medications Current Medication List: was personally reviewed by me Laboratory Data Attestation: I reviewed the patient's lab results. Result diagrams: 05/20/21 18:56 05/20/21 18:56 Lab Results 05/20/21 05/20/21 05/20/21 Range/Units 18:56 18:56 18:56 WBC 6.80 (4.8-10.8) K/uL RBC 5.13 (4.7-6.1) M/uL Hgb 15.3 (14.0-18.0) g/dL Hct 43.7 (42-52) % MCV 85.2 (80-100) fL MCH 29.8 (25-34) pg MCHC 35.0 (32-36) g/dL RDW Std Deviation 40.7 (36.4-46.3) fL RDW Coeff of Dank 12.8 (11.5-14.5) % Plt Count 536 H (130-400) K/uL MPV 9.2 (7.4-10.4) fL Immature Gran % (Auto) 0.6 % Neut % (Auto) 84.9 % Lymph % (Auto) 11.2 % [place] % (Auto) 3.2 % Eos % (Auto) 0.0 % Baso % (Auto) 0.1 % Neut # (Auto) 5.77 (1.4-6.5) K/uL Lymph # (Auto) 0.76 L (1.2-3.4) K/uL [place] # (Auto) 0.22 (0.11-0.59) K/uL Eos # (Auto) 0.00 (0-0.5) K/uL Baso # (Auto) 0.01 (0-0.2) K/uL Immature Gran # (Auto) 0.04 H (0.00-0.02) K/uL Sodium 132 L (136-145) mmol/L Potassium 3.7 (3.5-5.1) mmol/L Chloride 96 L (98-107) mmol/L Carbon Dioxide 25 (21-32) mmol/L Anion Gap 11.0 (3-11) BUN 13 (7-18) mg/dl Creatinine 0.79 (0.6-1.4) mg/dl Est Cr Clr Drug Dosing Not Reportable Est GFR ( Amer) 126.6 ml/min Est GFR (Non-Af Amer) 109.2 ml/min BUN/Creatinine Ratio 16.5 (10-20) Glucose 155 H (70-99) mg/dl Calcium 9.1 (8.5-10.1) mg/dl Magnesium 2.6 H (1.8-2.4) mg/dl Total Bilirubin 0.6 (0.2-1) mg/dl AST 39 H (15-37) U/L ALT 142 H (12-78) U/L Alkaline Phosphatase 61 (45-117) U/L Troponin I < 0.015 (0-0.045) ng/ml Total Protein 8.2 (6.4-8.2) gm/dl Albumin 3.4 (3.4-5.0) gm/dl Globulin 4.8 H (2.5-4.0) gm/dl Albumin/Globulin Ratio 0.7 L (0.9-2) Urine Color Urine Appearance (Clear) Urine pH (4.5-7.5) Ur Specific Jack (1.000-1.030) Urine Protein (Negative) Urine Glucose (UA) (Negative) Urine Ketones (Negative) Urine Blood (Negative) Urine Nitrite (Negative) Urine Bilirubin (Negative) Urine Urobilinogen (Negative) Ur Leukocyte Esterase (Negative) Urine Opiates Screen (Neg) Ur Methadone, Qual (Neg) Urine Barbiturates (Neg) Ur Phencyclidine (PCP) (Neg) U Amphetamin/Meth Scrn (Neg) MDMA (Ecstasy) Screen (Neg) U Benzodiazepines Scrn (Neg) Ur Cocaine Metabolite (Neg) U Marijuana (THC) Screen (Neg) Ethyl Alcohol mg/dL < 3.0 (0-3) mg/dl 05/20/21 05/20/21 Range/Units 20:30 20:30 WBC (4.8-10.8) K/uL RBC (4.7-6.1) M/uL Hgb (14.0-18.0) g/dL Hct (42-52) % MCV (80-100) fL MCH (25-34) pg MCHC (32-36) g/dL RDW Std Deviation (36.4-46.3) fL RDW Coeff of Dank (11.5-14.5) % Plt Count (130-400) K/uL MPV (7.4-10.4) fL Immature Gran % (Auto) % Neut % (Auto) % Lymph % (Auto) % [place] % (Auto) % Eos % (Auto) % Baso % (Auto) % Neut # (Auto) (1.4-6.5) K/uL Lymph # (Auto) (1.2-3.4) K/uL [place] # (Auto) (0.11-0.59) K/uL Eos # (Auto) (0-0.5) K/uL Baso # (Auto) (0-0.2) K/uL Immature Gran # (Auto) (0.00-0.02) K/uL Sodium (136-145) mmol/L Potassium (3.5-5.1) mmol/L Chloride (98-107) mmol/L Carbon Dioxide (21-32) mmol/L Anion Gap (3-11) BUN (7-18) mg/dl Creatinine (0.6-1.4) mg/dl Est Cr Clr Drug Dosing Est GFR ( Amer) ml/min Est GFR (Non-Af Amer) ml/min BUN/Creatinine Ratio (10-20) Glucose (70-99) mg/dl Calcium (8.5-10.1) mg/dl Magnesium (1.8-2.4) mg/dl Total Bilirubin (0.2-1) mg/dl AST (15-37) U/L ALT (12-78) U/L Alkaline Phosphatase (45-117) U/L Troponin I (0-0.045) ng/ml Total Protein (6.4-8.2) gm/dl Albumin (3.4-5.0) gm/dl Globulin (2.5-4.0) gm/dl Albumin/Globulin Ratio (0.9-2) Urine Color Yellow Urine Appearance Clear (Clear) Urine pH 7.0 (4.5-7.5) Ur Specific Jack 1.003 (1.000-1.030) Urine Protein Negative (Negative) Urine Glucose (UA) Negative (Negative) Urine Ketones Negative (Negative) Urine Blood Negative (Negative) Urine Nitrite Negative (Negative) Urine Bilirubin Negative (Negative) Urine Urobilinogen Negative (Negative) Ur Leukocyte Esterase Negative (Negative) Urine Opiates Screen Neg (Neg) Ur Methadone, Qual Neg (Neg) Urine Barbiturates Neg (Neg) Ur Phencyclidine (PCP) Neg (Neg) U Amphetamin/Meth Scrn Neg (Neg) MDMA (Ecstasy) Screen Neg (Neg) U Benzodiazepines Scrn Neg (Neg) Ur Cocaine Metabolite Neg (Neg) U Marijuana (THC) Screen Neg (Neg) Ethyl Alcohol mg/dL (0-3) mg/dl Imaging Data Attestation: I personally reviewed and interpreted this imaging study as follows: Radiologist's Impression: Head CT 05/20/21 18:17 CT head/brain wo con CLINICAL HISTORY: covid+, confusion COMPARISON STUDY: 02/03/2013 CT DOSE: 614.27 mGy.cm TECHNIQUE: Standard CT of the Brain was performed without IV contrast. A dose lowering technique was utilized adhering to the principles of ALARA. FINDINGS: Extraaxial space: There is no evidence for subdural hematoma. There are no extra-axial fluid collections. Ventricles and cisterns: The ventricles are normal in size and configuration. There is no evidence for midline shift or mass effect. Parenchyma: There is no subarachnoid or intraparenchymal hemorrhage. There is no evidence for an acute infarct or cerebral edema. There is homogeneous attenuation of the brain parenchyma. There are no gross mass lesions. Osseous structures: There is no evidence for an acute fracture. The visualized paranasal sinuses are clear. The mastoid air cells are clear bilaterally. Soft tissues: There is no evidence for focal soft tissue swelling. IMPRESSION: No acute intracerebral pathology. ACT 112: Negative or not required by law. Electronically signed by: Julius Velasquez M.D. 05/20/2021 8:22 PM Chest X-Ray 05/20/21 18:18 XR chest 1V portable CLINICAL HISTORY: Covid positive. Cough and chest pain.. Confusion COMPARISON STUDY: 05/16/2021 TECHNIQUE: 1 view of the chest FINDINGS: Single frontal view of the chest demonstrates the cardiomediastinal silhouette to be within normal limits. Compared to the previous examination, there is again slight worsening of patchy interstitial and alveolar opacities bilaterally. The findings are again characteristic of a viral type pneumonitis and Covid 19 pneumonia. There is no evidence for pleural effusion. There is no evidence for vascular congestion. There is no acute osseous pathology. IMPRESSION: Continued slight interval worsening of interstitial and alveolar opacities characteristic of a viral type pneumonitis and Covid 19 pneumonia. ACT 112: Negative or not required by law. Electronically signed by: Julius Velasquez M.D. 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 Patient was placed on the production support supervisor. Patient was noted to be in sinus tachycardia at an initial rate of 127 bpm. The patient is a 45-year-old male who presents today for evaluation of altered mental status. Patient had a recent admission here for COVID-19. He returned home and was doing fine, but has been confused today. Patient does admit to feeling confused. He is alert and oriented x3, but seems to become confused about where he is and what is happening at times. He does follow commands appropriately. He responds to most questions with very short answers. His s ister states that this is all very unusual for him. Urine drug screen was negative. CT of the head was negative. MRI was ordered. Suspect this altered mental status is due to his COVID-19 infection, although reaction to dexamethasone could also be a possibility. The case was discussed with the [facility] to evaluate the patient for further care. Impression & Plan Altered mental status, COVID-19 virus infection Discharge Plan Visit Data Chief Complaint: Anxiety Stated Complaint: ANXIETY - ALT MENTAL STATUS ED Provider: Bj May ED Midlevel Provider: Aliya Orozco Discharge Problem: Altered mental status, COVID-19 virus infection Forms Stand Alone Forms: My [facility], Suicide Prevention Resources Prescriptions Prescriptions: No Action hydrochlorothiazide 25 mg tablet 25 mg PO QAM Qty: 90 RF: 3 amlodipine 10 mg tablet 10 mg PO QAM RF: 0 acetaminophen [Tylenol Extra Strength] 500 mg Tablet 500 mg PO QID PRN (Reason: Pain) RF: 0 guaifenesin [Mucinex] 600 mg Tablet Extended Release 12hr 1,200 mg PO Q12 Qty: 14 RF: 0 dexamethasone [Decadron] 6 mg tablet 6 mg PO DAILY Qty: 8 RF: 0 benzonatate 100 mg capsule 100 mg PO TID PRN (Reason: cough) Qty: 30 RF: 0 Referrals Referrals: Shanelle Avila CRNP [Primary Care Provider] - Discharge Problem: Altered mental status Qualifiers: Altered mental status type: unspecified Qualified Code(s): R41.82 - Altered mental status, unspecified
[2021-05-21] MEDS ORDERED: ACETAMINOPHEN 325 MG TAB PO PRN (01:06)
[2021-05-21] MEDS ORDERED: BENZONATATE 100 MG CAPSULE PO PRN (01:06)
[2021-05-21] MEDS ORDERED: NSS + 20MEQ KCL 20 MEQ/1,000 ML BAG IV SCH (01:06)
[2021-05-21] MEDS ORDERED: ONDANSETRON INJ 2 MG/ML 2 ML VIAL IV PRN (01:06)
[2021-05-21] MEDS ORDERED: ACETAMINOPHEN HOME PACK 500 MG TABLET PO PRN (01:06)
[2021-05-21] MEDS ORDERED: NSS+KCL 20 MEQ 1000ML IV ONE (01:47)
[2021-05-21 02:32] LABS: Lyme Ab IgG w/WB Rflx Negative (Negative); Lyme Ab IgM w/WB Rflx Negative (Negative)
[2021-05-21 05:21] LABS: Hematocrit (blood only) 42.5 % (42-52); Hemoglobin 14.7 g/dL (14.0-18.0); Mean Corpuscular Hemoglobin 29.9 pg (25-34); Mean Corpuscular Hgb Conc 34.6 g/dL (32-36); Mean Corpuscular Volume 86.4 fL (80-100); Mean Platelet Volume 9.1 fL (7.4-10.4); Platelet Count 541 K/uL (130-400); RDW Coefficient of Variation 13.1 % (11.5-14.5); RDW Standard Deviation 41.8 fL (36.4-46.3); Red Blood Count 4.92 M/uL (4.7-6.1); White Blood Count 6.84 K/uL (4.8-10.8)
[2021-05-21 05:45] LABS: Alanine Aminotransferase 131 U/L (12-78); Albumin Globulin Ratio 0.7 (0.9-2); Albumin Level 3.1 gm/dl (3.4-5.0); Alkaline Phosphatase 55 U/L (45-117); Aspartate Aminotransferase 38 U/L (15-37); BUN Creatinine Ratio 16.4 (10-20); Bilirubin,Total 0.6 mg/dl (0.2-1); Blood Urea Nitrogen 14 mg/dl (7-18); Calcium 9.1 mg/dl (8.5-10.1); Carbon Dioxide 29 mmol/L (21-32); Chloride 99 mmol/L (98-107); Creatinine Clr Calc Pharmacy 122.5 ml/min; Est GFR (African American) 121.7 ml/min; Globulin 4.4 gm/dl (2.5-4.0); Glucose 165 mg/dl (70-99); Potassium 4.3 mmol/L (3.5-5.1); Sodium 133 mmol/L (136-145); Total Protein 7.5 gm/dl (6.4-8.2); Troponin I < 0.015 ng/ml (0-0.045)
--- NOTE | 2021-05-21 06:34 | Magnetic Resonance Report ---
MRI OF THE BRAIN WITHOUT IV CONTRAST CLINICAL HISTORY: Change in mental status. Covid. COMPARISON STUDY: CT of the brain dated 05/20/2021. TECHNIQUE: MRI of the brain was performed utilizing various T1 and T2-weighted sequences in the axial , sagittal, and coronal planes. IV contrast was not administered for this examination. Examination is degraded by motion artifact. FINDINGS: Brain parenchyma: The brain parenchyma is normal in appearance. There is no hemorrhage or mass effect . There is no restricted diffusion to suggest acute ischemia. Alvarez-white matter differentiation is pr eserved. No extra-axial fluid collection is seen. The cerebellar tonsils are normal in configuration. Ventricles, sulci, and cisterns: Normal in configuration. Pituitary and sella: Partially empty sella is incidentally noted. Intracranial vasculature: Normal flow voids are maintained at the skull base. Orbits: The bony orbits are grossly intact. Orbital contents are normal in appearance. Sinuses and mastoids: Clear. Calvarium: Unremarkable. Cervical cord: Partially visualized cervical spinal cord is normal in morphology and signal intensity . IMPRESSION: No acute intracranial abnormality is identified noting a motion degraded examination. ACT 112: Negative or not required by law. Electronically signed by: Dominguez Bedoya M.D. 05/21/2021 6:32 AM
[2021-05-21 06:44] LABS: Basophils # (auto) 0.01 K/uL (0-0.2); Basophils % (auto) 0.1 %; Eosinophils # (auto) 0.02 K/uL (0-0.5); Eosinophils % (auto) 0.3 %; Immature Granulocytes # (auto) 0.04 K/uL (0.00-0.02); Immature Granulocytes % (auto) 0.6 %; Lymphocytes # (auto) 1.05 K/uL (1.2-3.4); Lymphocytes % (auto) 15.4 %; Monocytes % (auto) 5.8 %; Neutrophils # (auto) 5.32 K/uL (1.4-6.5); Neutrophils % (auto) 77.8 %
--- NOTE | 2021-05-21 07:29 | Electrocardiogram Report ---
Test Reason : Blood Pressure : / mmHG Vent. Rate : 113 BPM Atrial Rate : 113 BPM P-R Int : 148 ms QRS Dur : 104 ms QT Int : 350 ms P-R-T Axes : 041 011 050 degrees QTc Int : 480 ms Sinus tachycardia Otherwise normal ECG When compared with ECG of 16-MAY-2021 12:48, No significant change was found Confirmed by Remi Hair ([id number]) on 05/21/2021 7:29:20 AM Referred By: REFERRED SELF Confirmed By:Jarad Hair
[2021-05-21] MEDS ORDERED: guaiFENesin 600 MG TABCR PO SCH (09:00)
[2021-05-21] MEDS ORDERED: dexAMETHasone 6 MG in SYRINGE 0 ML IV SCH (09:00)
[2021-05-21] MEDS ORDERED: amLODIPine BESYLATE 5 MG TAB PO ONE (12:40)
[2021-05-21] MEDS ORDERED: hydroCHLOROthiazide 25 MG TAB PO STA (12:40)
--- NOTE | 2021-05-21 12:47 | Discharge Summary ---
Date of Service May 21, 2021 Admission HPI Per Admitting Provider The patient is a 45-year-old male with a past medical history including GERD, hypertension and recent admission to [facility] from 05/16-05/18 for COVID-19 pneumonia with hypoxia. Upon arrival in the emergency room, patient was confused, and when asked why he was at the ED, he replied "meds". Patient was very confused, and had difficulty relaying his symptoms other than the fact he was confused and felt very weak. 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 Work-up in the emergency department included the following imaging: Chest x-ray showed slight progression of viral pneumonia. CT scan of head showed no acute findings. MRI brain showed no acute findings. Abnormal laboratories: Glucose 155, AST 39 which was decreased from 45, and ALT 142 which is increased from 73. Urine drug screen was negative. EKG showed sinus tachycardia 113 bpm, with no acute ST-T changes. While in the ED, the patient's sister called and asked that the patient's phone be taken from him, as he was texting and face booking a number of people and stating very bizarre and unusual things. Principal Diagnosis Encephalopathy from COVID 19, resolved Discharge Exam General: well developed, well nourished, no acute distress, comfortable Neck: supple, trachea midline, normal thyroid Lungs: clear to auscultation bilaterally, normal respiratory effort, no accessory muscle use, no distress Heart: tachycardic S1 and S2, no murmur, peripheral pulses normal, capillary refill normal, no edema Abdomen: soft, NT, ND, + BS, no hepatomegaly, normal to percussion Extremities: normal in appearance, no cyanosis, no petechiae, strength is 5/5 bilaterally Neuro: awake, cooperative, moves all extremities, no focal motor deficits, CN II-XII intact, sensation in extremities intact, normal speech Skin: warm, dry, no rash, normal turgor Psych: Awake, alert oriented x 3, euthymic affect Discharge Data Allergies Allergy/AdvReac Type Severity Reaction Status Date / Time No Known Allergies Allergy Mild Unverified 05/20/21 19:17 Consultations 05/20/21 21:33 ED Decision to Admit Stat Ordered Studies 05/20/21 18:17 CT head/brain wo con Stat 05/20/21 23:00 MR brain wo con Stat Hospital Course (1) Altered mental status: Altered mental status/confusion and disorientation- CT head and MRI of brain negative for acute findings symptoms completely resolved, he is alert and oriented back on dexamethasone for COVID infection he has some tachycardia and BP is elevated, he says that he has white coat hypertension observed him walking around the room, no dyspnea, he is steady on his feet he is eating well, he wants to go home, he says he has his dexamethasone and will take as instructed discharge to home (2) COVID-19 virus infection: Recent admission from 05/16-05/18 for COVID-19 pneumonia with hypoxia. As noted above, patient did not get dexamethasone prescription filled until attempted to 2 days later, the day of readmission We will place back on dexamethasone 6 mg IV every morning discharge to home on dexamethasone 6mg PO daily for 6 more days follow up with PCP stay off work for 2 weeks (3) HTN (hypertension): resume amlodipine and HCTZ. Total Time Total Time Spent Total Time Spent (In Minutes): 32 minutes Discharge Plan Discharge Items Patient Disposition: Home - Self-Care Reason For Visit: CONFUSION, COVID-19 PNEUMONIA W/ HYPOXIA, SINUS TA Discharge Diagnosis: COVID 19 pneumonia Acute encephalopathy, resolved Condition on Discharge: Good Goals: complete 6 more days of dexamethasone stay well nourished and well hydrated Activity: Resume your previous activity Weightbearing: Full weightbearing Non-emergency contact: Primary Care Provider Call non-emergency contact if: you have any medication questions and your symptoms worsen Follow-up/Referrals: Shanelle Avila CRNP [Primary Care Provider] - (keep appointment for Sunday) Diet: Regular Addtl Attending Provider Instructions: Medications: - DEXAMETHASONE: take 6mg every morning at 9am (or when you take your blood pressure pills) and take for the next 6 days, start tomorrow, Sunday05/22/21 COVID 19 pneumonia, acute confusion labs normal, you are not hypoxic, MRI of the brain was normal, unclear etiology of confusion but resolved you need to finish a course of dexamethasone, you got a dose this morning, take at home starting tomorrow for 6 more days you need to make sure you are eating well and staying well hydrated follow up with Shanelle Avila on Sunday again, stay off of work for 2 weeks as instruction on discharge instructions from 05/18/21 Pending Studies at Discharge: No Stand-Alone Forms: My [facility], Smoking Cessation Medications and DC Order Prescriptions: Continued hydrochlorothiazide 25 mg tablet 25 mg PO QAM Qty: 90 RF: 3 amlodipine 10 mg tablet 10 mg PO QAM RF: 0 acetaminophen [Tylenol Extra Strength] 500 mg Tablet 500 mg PO QID PRN (Reason: Pain) RF: 0 guaifenesin [Mucinex] 600 mg Tablet Extended Release 12hr 1,200 mg PO Q12 Qty: 14 RF: 0 dexamethasone [Decadron] 6 mg tablet 6 mg PO DAILY Qty: 8 RF: 0 benzonatate 100 mg capsule 100 mg PO TID PRN (Reason: cough) Qty: 30 RF: 0 Discharge Orders: Discharge Order (Routine); Ordered 05/21/21 Ordered By: Balta Rdz Admission Data Admit Date/Time: 05/20/21 22:49 Attending Provider: Balta Rdz Admit Provider: Bruce Multani Primary Care Provider: Shanelle Avila Other Providers: Bruce Multani Other Interventions: Discharge Summary Assessment (RN) Last Done: 05/21/21 14:33 Coding Level of Care Code 67908 OBS Care - Discharge Diagnoses Altered mental status R41.82 Altered mental status type: unspecified COVID-19 virus infection U07.1 HTN (hypertension) I10 Hypertension type: essential hypertension
== END 2021-05-21 14:33 | disposition home or self-care (01) | DRG 177 ==
LOC: ED 17:05 → SUATTDRO 22:49 → EDINP 22:49
DX: J12.82 Pneumonia due to coronavirus disease 2019; I10 Essential (primary) hypertension; R00.0 Tachycardia, unspecified; G93.49 Other encephalopathy; K21.9 Gastro-esophageal reflux disease without esophagitis; U07.1 COVID-19; Z83.3 Family history of diabetes mellitus